=== PATIENT | female | born 1985 | race Caucasian/White ===

== ENCOUNTER 2021-01-12 21:43 | Emergency (ER) | payer OTHER ==
[~2021-01-12 21:43] MED LIST: IMODIUM CAP 2 MG2 MG PO; MEDROL4 MG PO; OMNICEF 300 MG300 MG PO; PROVENTIL HFA6.7 GM INH; ZANTAC150 MG PO; ZOFRAN ODT 4 MG4 MG SL
[2021-01-13 07:15] LABS: HEMOGLOBIN 11.4 gm/dl (12.3-15.3); RED BLOOD COUNT 3.75 M/UL (4.00-5.10)
[2021-01-13 07:27] LABS: BUN/CREATININE RATIO 19 (0-10)
[2021-01-13] MEDS ORDERED: CEPHALEXIN500 MG PO (09:45)
== END 2021-01-13 09:55 | disposition home or self-care (01) ==
LOC: ER1 21:43
PROVIDERS: Family Medicine
DX: O23.42 Unspecified infection of urinary tract in pregnancy, second trimester (principal); Z37.2 Twins, both liveborn; O99.332 Smoking (tobacco) complicating pregnancy, second trimester; F17.290 Nicotine dependence, other tobacco product, uncomplicated; Z3A.16 16 weeks gestation of pregnancy
CPT/HCPCS: 76815; 80053; 81001; 83690; 84702; 85025; 87077; 87086; 87186; 99284